=== PATIENT | female | born 1945 | race Caucasian/White ===

== ENCOUNTER 2017-12-24 11:49 | Emergency (ER) | payer BC, SELFPAY ==
[2017-12-24 12:00] VITALS: BP 137/66; PULSE 67; RESP 15; TEMP 36.3; O2SAT 99
--- NOTE | 2017-12-24 12:13 | ED.CHESTPAIN ---
HPI - Chest Pain <Gali Arnold PA-C - Last Filed: 12/24/17 21:40> General Chief Complaint: Chest Pain Stated Complaint: CHEST PAIN Time Seen by Provider: 12/24/17 12:11 Source: patient Mode of arrival: ambulatory Limitations: no limitations History of Present Illness HPI narrative: This 72-year-old female is sent by her PCP today due to chest discomfort. She states that she never had any chest pain in her life until this past summer. She states initially, she had this after taking her vitamins and supplements on an empty stomach and thought the pill got stuck in her chest sideways. She states that she has had a few episodes of chest discomfort similar to this on and off since summer that she thinks tends to may be her more when she is supine, and noted another episode after taking vitamins on an empty stomach once. She states that the last couple of days she has had sharper pain in her mid sternum that radiates up into her throat area. Pain does not seem to radiate to her jaw or shoulders or elsewhere. She states she has had a little bit more burping and belching in the past few days along with this. She states that she woke up with discomfort early this morning in her chest. She states she thinks that it maybe gets better with standing. She walked up pill this morning and states that she had no symptoms at all. She states for the last couple of days, pain will be sharp for a few minutes, then maybe she will have tiny twinges of pain later. Last night it came on while she was watching TV, then again early this morning while in bed as noted. She has not had any nausea or vomiting with these recent episodes. She has not had any abdominal pain, new pain or swelling in her arms or legs. She denies any difficulty swallowing. She states she has occasional slight dry cough without wheeze or dyspnea. She has not had any medication changes, but she notes that she has not eaten all day today. She states that symptoms did come on around the time she changed her diet to an even lower carb diet than usual last summer, but has gone back to her normal diet since. She states that other than some belching she is feeling better now. Related Data Home Medications Medication Instructions Recorded Confirmed Calcium 1 tab PO QPM 12/24/17 12/24/17 Vitamin B17 1 tab PO QPM 12/24/17 12/24/17 Vitamin C 1 tab PO QPM 12/24/17 12/24/17 Vitamin D3 1 tab PO QPM 12/24/17 12/24/17 glucosamine-chondroitin 1 tab PO QPM 12/24/17 12/24/17 magnesium 1 tab PO QPM 12/24/17 12/24/17 omega 1-epc-ldv-fish oil [[place]-3] 1 cap PO DAILY 12/24/17 12/24/17 selenium 1 cap PO DAILY 12/24/17 12/24/17 vitamin A 1 cap PO QPM 12/24/17 12/24/17 vitamin E 1 cap PO QPM 12/24/17 12/24/17 Allergies Allergy/AdvReac Type Severity Reaction Status Date / Time No Known Drug Allergies Allergy Verified 12/24/17 12:36 Review of Systems <Gali Arnold PA-C - Last Filed: 12/24/17 21:40> Review of Systems All systems reviewed & are unremarkable except as noted in HPI and below PFSH <Gali Arnold PA-C - Last Filed: 12/24/17 21:40> Comment: ETOH 1-2 per day, no street drugs Exam <Gali Arnold PA-C - Last Filed: 12/24/17 21:40> Narrative Exam Narrative: GENERAL APPEARANCE: Patient sitting comfortably, in no distress. HEENT: PERRL, EOMI, normal oropharynx NECK/THYROID: Neck supple, no JVD, no masses. LUNGS: Clear to auscultation bilaterally. CHEST: TTP over the xiphoid, no tenderness elsewhere HEART: Regular rate and rhythm without murmur, normal S1, S2, no S3 or S4. ABDOMEN: Soft, NT, ND, + BS x 4 quadrants EXTREMITIES: No cyanosis or edema. No calf tenderness NEUROLOGIC: Alert and oriented, normal speech, gait and coordination. DERMATOLOGIC: No exanthem Initial Vital Signs Initial Vital Signs: Vital Signs Temperature 97.3 F L 12/24/17 12:00 Pulse Rate 67 12/24/17 12:00 Respiratory Rate 15 12/24/17 12:00 Blood Pressure 137/66 12/24/17 12:00 Pulse Oximetry 99 12/24/17 12:00 <Panchito Christianson DO - Last Filed: 12/25/17 07:02> Initial Vital Signs Initial Vital Signs: Vital Signs Temperature 97.3 F L 12/24/17 12:00 Pulse Rate 67 12/24/17 12:00 Respiratory Rate 15 12/24/17 12:00 Blood Pressure 137/66 12/24/17 12:00 Pulse Oximetry 99 12/24/17 12:00 Scores <LUCAS Francois Last Filed: 12/24/17 21:40> HEART Score Heart Score history: Slightly Suspicious Heart Score EKG: Normal Heart Score Age: > or = 65 years old Heart Score risk factors: No known risk factors Heart Score troponin: < or = to normal limit Heart Score Total: 2 Course <LUCAS Francois Last Filed: 12/24/17 21:40> Orders Ordered: Discontinued Medications Al Hydrox/Mg Hydrox/Simethicone 20 ml/ Lidocaine HCl 15 ml 0 ml PO NOW ONE Stop: 12/24/17 12:45 Last Admin: 12/24/17 12:48 Dose: 35 ml Vital Signs - 8 hr 12/24/17 12:00 12/24/17 12:30 12/24/17 13:00 Temperature 97.3 F L Pulse Rate 67 67 65 Respiratory Rate 15 16 10 L Blood Pressure 137/66 Blood Pressure [Right Arm] 123/64 119/63 Pulse Oximetry 99 100 98 <Panchito Christianson DO - Last Filed: 12/25/17 07:02> Orders Ordered: Discontinued Medications Al Hydrox/Mg Hydrox/Simethicone 20 ml/ Lidocaine HCl 15 ml 0 ml PO NOW ONE Stop: 12/24/17 12:45 Last Admin: 12/24/17 12:48 Dose: 35 ml Vital Signs - 8 hr 12/24/17 12:00 12/24/17 12:30 12/24/17 13:00 Temperature 97.3 F L Pulse Rate 67 67 65 Respiratory Rate 15 16 10 L Blood Pressure 137/66 Blood Pressure [Right Arm] 123/64 119/63 Pulse Oximetry 99 100 98 MDM - Chest Pain <LUCAS Francois Last Filed: 12/24/17 21:40> Lab Data Attestation: I reviewed the patient's lab results. Result diagrams: 12/24/17 12:01 12/24/17 12:01 Lab Results 12/24/17 12/24/17 12/24/17 Range/Units 12:01 12:01 12:01 WBC 5.3 (4.5-11.0) X10^3/uL RBC 4.48 (4.0-5.2) X10^6/uL Hgb 14.5 (12.0-16.0) g/dL Hct 41.7 (36-46) % MCV 93.1 (80-100) fL MCH 32.4 (26-34) PG MCHC 34.8 (30-36) % RDW 13.9 (11.6-14.8) % Plt Count 291 (150-400) X10^3/uL Neut % (Auto) 58.7 (50-75) % Lymph % (Auto) 27.3 (25-40) % [place] % (Auto) 11.6 (3-14) % Eos % (Auto) 1.9 L (2-4) % Baso % (Auto) 0.5 (0-2) % Neut # (Auto) 3100 (9343-8537) /uL PT 11.0 (10.1-12.7) SECONDS INR 1.0 (0.9-1.3) APTT 25 L (26.4-36.2) SECONDS Sodium 142 (137-145) mmol/L Potassium 3.9 (3.4-5.1) mmol/L Chloride 106 (98-107) mmol/L Carbon Dioxide 28 (22-32) mmol/L BUN 11 (7-17) mg/dL Creatinine 0.50 L (0.52-1.04) mg/dL Estimated GFR > 60.0 (>60) mL/min BUN/Creatinine Ratio 22.0 (6-22) Glucose 85 (80-110) mg/dL Calcium 9.3 (8.4-10.2) mg/dL Total Bilirubin 0.5 (0.2-1.3) mg/dL AST 24 (14-36) IU/L ALT 29 (9-52) IU/L Alkaline Phosphatase 86 (38-126) U/L Total Creatine Kinase 105 (30-135) U/L CK-MB (CK-2) 1.83 (<2.37) ng/mL CK-MB (CK-2) Rel Index 1.7 (1.5-5.0) % Troponin I < 0.012 (0.01-0.034) ng/mL Total Protein 7.2 (6.3-8.2) g/dL Albumin 4.1 (3.5-5.0) g/dL Globulin 3.1 (1.7-4.1) g/dL Albumin/Globulin Ratio 1.3 (1.0-2.8) Lipase 78 (23-300) U/L Imaging Data Chest x-ray: Radiologist's impression: [place] [address] XRay Report Signed Patient: Lida Cox [facility]#: [id number] : 7Acct:[id number] Age/Sex: 72 / FDate of Service: 12/24/17 Loc: ED Accession Number: [id number] Procedure: XR chest 1V Ordering Provider: Panchito Christianson D.O. PROCEDURE: XR CHEST 1V INDICATIONS: chest pain TECHNIQUE: One view of the chest was acquired. COMPARISON: None. FINDINGS: Surgical changes and devices: None. Lungs and pleura: No pleural effusions or pneumothorax. Lungs are clear. Mediastinum: Mediastinal contours appear normal. Heart size is normal. Bones and chest wall: No suspicious bony lesions. Overlying soft tissues appear unremarkable. IMPRESSION: No acute cardiopulmonary disease. Dictated by: Selina Cooney M.D. on 12/24/2017 at 12:31 Approved by: Selina Cooney M.D. on 12/24/2017 at 12:46 ECG Data Attestation: I personally reviewed and interpreted this ECG as follows: (Normal sinus rhythm, rate 64, left axis deviation, no significant ST changes. No change from earlier today) Prior ECG tracings: available for review <Panchito Christianson DO - Last Filed: 12/25/17 07:02> Lab Data Lab Results 12/24/17 12/24/17 12/24/17 Range/Units 12:01 12:01 12:01 WBC 5.3 (4.5-11.0) X10^3/uL RBC 4.48 (4.0-5.2) X10^6/uL Hgb 14.5 (12.0-16.0) g/dL Hct 41.7 (36-46) % MCV 93.1 (80-100) fL MCH 32.4 (26-34) PG MCHC 34.8 (30-36) % RDW 13.9 (11.6-14.8) % Plt Count 291 (150-400) X10^3/uL Neut % (Auto) 58.7 (50-75) % Lymph % (Auto) 27.3 (25-40) % [place] % (Auto) 11.6 (3-14) % Eos % (Auto) 1.9 L (2-4) % Baso % (Auto) 0.5 (0-2) % Neut # (Auto) 3100 (2554-6908) /uL PT 11.0 (10.1-12.7) SECONDS INR 1.0 (0.9-1.3) APTT 25 L (26.4-36.2) SECONDS Sodium 142 (137-145) mmol/L Potassium 3.9 (3.4-5.1) mmol/L Chloride 106 (98-107) mmol/L Carbon Dioxide 28 (22-32) mmol/L BUN 11 (7-17) mg/dL Creatinine 0.50 L (0.52-1.04) mg/dL Estimated GFR > 60.0 (>60) mL/min BUN/Creatinine Ratio 22.0 (6-22) Glucose 85 (80-110) mg/dL Calcium 9.3 (8.4-10.2) mg/dL Total Bilirubin 0.5 (0.2-1.3) mg/dL AST 24 (14-36) IU/L ALT 29 (9-52) IU/L Alkaline Phosphatase 86 (38-126) U/L Total Creatine Kinase 105 (30-135) U/L CK-MB (CK-2) 1.83 (<2.37) ng/mL CK-MB (CK-2) Rel Index 1.7 (1.5-5.0) % Troponin I < 0.012 (0.01-0.034) ng/mL Total Protein 7.2 (6.3-8.2) g/dL Albumin 4.1 (3.5-5.0) g/dL Globulin 3.1 (1.7-4.1) g/dL Albumin/Globulin Ratio 1.3 (1.0-2.8) Lipase 78 (23-300) U/L Discharge Plan Departure Patient Disposition: Home Clinical Impression: Atypical chest pain Discharge Date/Time: 12/24/17 13:30 Interventions: ED Discharge Assessment Last Done: 12/24/17 13:29 Instructions: DI for Chest Pain Activity Restrictions/Additional Instructions: Your testing today does not appear suspicious for a heart problem based on what you describe and what we see. Since the medication we gave you today seemed to have helped, please start taking over the counter Pepcid (famotidine) 20mg, once daily. This is a mild huwp-qlo-neubkdd medicine to help with reflux and esophageal irritation. Also please keep some liquid antacid such as Maalox or Gaviscon on hand and take this if you get recurrent pain as this may give you more immediate relief. Reviewing your progress while taking these will likely be helpful to you and your PCP at your follow-up visit as well as keeping track of your diet as it sounds like there may be dietary triggers to your symptoms. Please follow-up with your PCP within the next week to discuss doing a cardiac stress test as well to get a clearer picture of what your heart is doing when under stress. You should return here immediately if you have any worsening symptoms, or new symptoms such as lightheadedness or shortness of breath in the interim. Prescriptions: No Action selenium 200 mcg Capsule 1 cap PO DAILY RF: 0 omega 7-vvz-nat-fish oil [[place]-3] 350 mg-235 mg- 90 mg-597 mg Capsule,Delayed Release(Dr/Ec) 1 cap PO DAILY RF: 0 Calcium 1 tab PO QPM RF: 0 Vitamin B17 1 tab PO QPM RF: 0 Vitamin C 1 tab PO QPM RF: 0 Vitamin D3 1 tab PO QPM RF: 0 glucosamine-chondroitin 1 tab PO QPM RF: 0 magnesium 1 tab PO QPM RF: 0 vitamin A 1 cap PO QPM RF: 0 vitamin E 1 cap PO QPM RF: 0 Referrals: Sanju Blevins MD [Primary Care Provider] - <Panchito Christianson DO - Last Filed: 12/25/17 07:02> [facility] ED Attending Shaynaature Attestation: I was available for consultation during this patient's emergency department encounter
[2017-12-24 12:21] LABS: PTT Partial Thromboplastin Tim 25 SECONDS (26.4-36.2)
--- NOTE | 2017-12-24 12:23 | ED_ITS ---
HPI - Chest Pain <Gali Arnold PA-C - Last Filed: 12/24/17 21:40> General Chief Complaint: Chest Pain Stated Complaint: CHEST PAIN Time Seen by Provider: 12/24/17 12:11 Source: patient Mode of arrival: ambulatory Limitations: no limitations History of Present Illness HPI narrative: This 72-year-old female is sent by her PCP today due to chest discomfort. She states that she never had any chest pain in her life until this past summer. She states initially, she had this after taking her vitamins and supplements on an empty stomach and thought the pill got stuck in her chest sideways. She states that she has had a few episodes of chest discomfort similar to this on and off since summer that she thinks tends to may be her more when she is supine, and noted another episode after taking vitamins on an empty stomach once. She states that the last couple of days she has had sharper pain in her mid sternum that radiates up into her throat area. Pain does not seem to radiate to her jaw or shoulders or elsewhere. She states she has had a little bit more burping and belching in the past few days along with this. She states that she woke up with discomfort early this morning in her chest. She states she thinks that it maybe gets better with standing. She walked up pill this morning and states that she had no symptoms at all. She states for the last couple of days, pain will be sharp for a few minutes, then maybe she will have tiny twinges of pain later. Last night it came on while she was watching TV, then again early this morning while in bed as noted. She has not had any nausea or vomiting with these recent episodes. She has not had any abdominal pain, new pain or swelling in her arms or legs. She denies any difficulty swallowing. She states she has occasional slight dry cough without wheeze or dyspnea. She has not had any medication changes, but she notes that she has not eaten all day today. She states that symptoms did come on around the time she changed her diet to an even lower carb diet than usual last summer , but has gone back to her normal diet since. She states that other than some belching she is feeling better now. Related Data Home Medications Medication Instructions Recorded Confirmed Calcium 1 tab PO QPM 12/24/17 12/24/17 Vitamin B17 1 tab PO QPM 12/24/17 12/24/17 Vitamin C 1 tab PO QPM 12/24/17 12/24/17 Vitamin D3 1 tab PO QPM 12/24/17 12/24/17 glucosamine-chondroitin 1 tab PO QPM 12/24/17 12/24/17 magnesium 1 tab PO QPM 12/24/17 12/24/17 omega 6-gme-twx-fish oil [[place]-3] 1 cap PO DAILY 12/24/17 12/24/17 selenium 1 cap PO DAILY 12/24/17 12/24/17 vitamin A 1 cap PO QPM 12/24/17 12/24/17 vitamin E 1 cap PO QPM 12/24/17 12/24/17 Allergies Allergy/AdvReac Type Severity Reaction Status Date / Time No Known Drug Allergies Allergy Verified 12/24/17 12:36 Review of Systems <Gali Arnold PA-C - Last Filed: 12/24/17 21:40> Review of Systems All systems reviewed & are unremarkable except as noted in HPI and below PFSH <Gali Arnold PA-C - Last Filed: 12/24/17 21:40> Comment: ETOH 1-2 per day, no street drugs Exam <Gali Arnold PA-C - Last Filed: 12/24/17 21:40> Narrative Exam Narrative: GENERAL APPEARANCE: Patient sitting comfortably, in no distress. HEENT: PERRL, EOMI, normal oropharynx NECK/THYROID: Neck supple, no JVD, no masses. LUNGS: Clear to auscultation bilaterally. CHEST: TTP over the xiphoid, no tenderness elsewhere HEART: Regular rate and rhythm without murmur, normal S1, S2, no S3 or S4. ABDOMEN: Soft, NT, ND, + BS x 4 quadrants EXTREMITIES: No cyanosis or edema. No calf tenderness NEUROLOGIC: Alert and oriented, normal speech, gait and coordination. DERMATOLOGIC: No exanthem Initial Vital Signs Initial Vital Signs: Vital Signs Temperature 97.3 F L 12/24/17 12:00 Pulse Rate 67 12/24/17 12:00 Respiratory Rate 15 12/24/17 12:00 Blood Pressure 137/66 12/24/17 12:00 Pulse Oximetry 99 12/24/17 12:00 <Panchito Christianson DO - Last Filed: 12/25/17 07:02> Initial Vital Signs Initial Vital Signs: Vital Signs Temperature 97.3 F L 12/24/17 12:00 Pulse Rate 67 12/24/17 12:00 Respiratory Rate 15 12/24/17 12:00 Blood Pressure 137/66 12/24/17 12:00 Pulse Oximetry 99 12/24/17 12:00 Scores <LUCAS Francois Last Filed: 12/24/17 21:40> HEART Score Heart Score history: Slightly Suspicious Heart Score EKG: Normal Heart Score Age: > or = 65 years old Heart Score risk factors: No known risk factors Heart Score troponin: < or = to normal limit Heart Score Total: 2 Course <LUACS Francois Last Filed: 12/24/17 21:40> Orders Ordered: Discontinued Medications Al Hydrox/Mg Hydrox/Simethicone 20 ml/ Lidocaine HCl 15 ml 0 ml PO NOW ONE Stop: 12/24/17 12:45 Last Admin: 12/24/17 12:48 Dose: 35 ml Vital Signs - 8 hr 12/24/17 12:00 12/24/17 12:30 12/24/17 13:00 Temperature 97.3 F L Pulse Rate 67 67 65 Respiratory Rate 15 16 10 L Blood Pressure 137/66 Blood Pressure [Right Arm] 123/64 119/63 Pulse Oximetry 99 100 98 <Panchito Christianson DO - Last Filed: 12/25/17 07:02> Orders Ordered: Discontinued Medications Al Hydrox/Mg Hydrox/Simethicone 20 ml/ Lidocaine HCl 15 ml 0 ml PO NOW ONE Stop: 12/24/17 12:45 Last Admin: 12/24/17 12:48 Dose: 35 ml Vital Signs - 8 hr 12/24/17 12:00 12/24/17 12:30 12/24/17 13:00 Temperature 97.3 F L Pulse Rate 67 67 65 Respiratory Rate 15 16 10 L Blood Pressure 137/66 Blood Pressure [Right Arm] 123/64 119/63 Pulse Oximetry 99 100 98 MDM - Chest Pain <LUCAS Francois Last Filed: 12/24/17 21:40> Lab Data Attestation: I reviewed the patient's lab results. Result diagrams: 12/24/17 12:01 12/24/17 12:01 Lab Results 12/24/17 12/24/17 12/24/17 Range/Units 12:01 12:01 12:01 WBC 5.3 (4.5-11.0) X10^3/uL RBC 4.48 (4.0-5.2) X10^6/uL Hgb 14.5 (12.0-16.0) g/dL Hct 41.7 (36-46) % MCV 93.1 (80-100) fL MCH 32.4 (26-34) PG MCHC 34.8 (30-36) % RDW 13.9 (11.6-14.8) % Plt Count 291 (150-400) X10^3/uL Neut % (Auto) 58.7 (50-75) % Lymph % (Auto) 27.3 (25-40) % [place] % (Auto) 11.6 (3-14) % Eos % (Auto) 1.9 L (2-4) % Baso % (Auto) 0.5 (0-2) % Neut # (Auto) 3100 (9173-1776) /uL PT 11.0 (10.1-12.7) SECONDS INR 1.0 (0.9-1.3) APTT 25 L (26.4-36.2) SECONDS Sodium 142 (137-145) mmol/L Potassium 3.9 (3.4-5.1) mmol/L Chloride 106 (98-107) mmol/L Carbon Dioxide 28 (22-32) mmol/L BUN 11 (7-17) mg/dL Creatinine 0.50 L (0.52-1.04) mg/dL Estimated GFR > 60.0 (>60) mL/min BUN/Creatinine Ratio 22.0 (6-22) Glucose 85 (80-110) mg/dL Calcium 9.3 (8.4-10.2) mg/dL Total Bilirubin 0.5 (0.2-1.3) mg/dL AST 24 (14-36) IU/L ALT 29 (9-52) IU/L Alkaline Phosphatase 86 (38-126) U/L Total Creatine Kinase 105 (30-135) U/L CK-MB (CK-2) 1.83 (<2.37) ng/mL CK-MB (CK-2) Rel Index 1.7 (1.5-5.0) % Troponin I < 0.012 (0.01-0.034) ng/mL Total Protein 7.2 (6.3-8.2) g/dL Albumin 4.1 (3.5-5.0) g/dL Globulin 3.1 (1.7-4.1) g/dL Albumin/Globulin Ratio 1.3 (1.0-2.8) Lipase 78 (23-300) U/L Imaging Data Chest x-ray: Radiologist's impression: [place] [address] XRay Report Signed Patient: Lida Cox [facility]#: [id number] : 7Acct:[id number] Age/Sex: 72 / FDate of Service: 12/24/17 Loc: ED Accession Number: [id number] Procedure: XR chest 1V Ordering Provider: Panchito Christianson D.O. PROCEDURE: XR CHEST 1V INDICATIONS: chest pain TECHNIQUE: One view of the chest was acquired. COMPARISON: None. FINDINGS: Surgical changes and devices: None. Lungs and pleura: No pleural effusions or pneumothorax. Lungs are clear. Mediastinum: Mediastinal contours appear normal. Heart size is normal. Bones and chest wall: No suspicious bony lesions. Overlying soft tissues appear unremarkable. IMPRESSION: No acute cardiopulmonary disease. Dictated by: Selina Cooney M.D. on 12/24/2017 at 12:31 Approved by: Selina Cooney M.D. on 12/24/2017 at 12:46 ECG Data Attestation: I personally reviewed and interpreted this ECG as follows: (Normal sinus rhythm, rate 64, left axis deviation, no significant ST changes. No change from earlier today) Prior ECG tracings: available for review <Panchito Christianson DO - Last Filed: 12/25/17 07:02> Lab Data Lab Results 12/24/17 12/24/17 12/24/17 Range/Units 12:01 12:01 12:01 WBC 5.3 (4.5-11.0) X10^3/uL RBC 4.48 (4.0-5.2) X10^6/uL Hgb 14.5 (12.0-16.0) g/dL Hct 41.7 (36-46) % MCV 93.1 (80-100) fL MCH 32.4 (26-34) PG MCHC 34.8 (30-36) % RDW 13.9 (11.6-14.8) % Plt Count 291 (150-400) X10^3/uL Neut % (Auto) 58.7 (50-75) % Lymph % (Auto) 27.3 (25-40) % [place] % (Auto) 11.6 (3-14) % Eos % (Auto) 1.9 L (2-4) % Baso % (Auto) 0.5 (0-2) % Neut # (Auto) 3100 (5519-1872) /uL PT 11.0 (10.1-12.7) SECONDS INR 1.0 (0.9-1.3) APTT 25 L (26.4-36.2) SECONDS Sodium 142 (137-145) mmol/L Potassium 3.9 (3.4-5.1) mmol/L Chloride 106 (98-107) mmol/L Carbon Dioxide 28 (22-32) mmol/L BUN 11 (7-17) mg/dL Creatinine 0.50 L (0.52-1.04) mg/dL Estimated GFR > 60.0 (>60) mL/min BUN/Creatinine Ratio 22.0 (6-22) Glucose 85 (80-110) mg/dL Calcium 9.3 (8.4-10.2) mg/dL Total Bilirubin 0.5 (0.2-1.3) mg/dL AST 24 (14-36) IU/L ALT 29 (9-52) IU/L Alkaline Phosphatase 86 (38-126) U/L Total Creatine Kinase 105 (30-135) U/L CK-MB (CK-2) 1.83 (<2.37) ng/mL CK-MB (CK-2) Rel Index 1.7 (1.5-5.0) % Troponin I < 0.012 (0.01-0.034) ng/mL Total Protein 7.2 (6.3-8.2) g/dL Albumin 4.1 (3.5-5.0) g/dL Globulin 3.1 (1.7-4.1) g/dL Albumin/Globulin Ratio 1.3 (1.0-2.8) Lipase 78 (23-300) U/L Discharge Plan Departure Patient Disposition: Home Clinical Impression: Atypical chest pain Discharge Date/Time: 12/24/17 13:30 Interventions: ED Discharge Assessment Last Done: 12/24/17 13:29 Instructions: DI for Chest Pain Activity Restrictions/Additional Instructions: Your testing today does not appear suspicious for a heart problem based on what you describe and what we see. Since the medication we gave you today seemed to have helped, please start taking over the counter Pepcid (famotidine) 20mg, once daily. This is a mild gvze-zgf-acrtfvy medicine to help with reflux and esophageal irritation. Also please keep some liquid antacid such as Maalox or Gaviscon on hand and take this if you get recurrent pain as this may give you more immediate relief. Reviewing your progress while taking these will likely be helpful to you and your PCP at your follow-up visit as well as keeping track of your diet as it sounds like there may be dietary triggers to your symptoms. Please follow-up with your PCP within the next week to discuss doing a cardiac stress test as well to get a clearer picture of what your heart is doing when under stress. You should return here immediately if you have any worsening symptoms, or new symptoms such as lightheadedness or shortness of breath in the interim. Prescriptions: No Action selenium 200 mcg Capsule 1 cap PO DAILY RF: 0 omega 7-omh-qao-fish oil [[place]-3] 350 mg-235 mg- 90 mg-597 mg Capsule, Delayed Release(Dr/Ec) 1 cap PO DAILY RF: 0 Calcium 1 tab PO QPM RF: 0 Vitamin B17 1 tab PO QPM RF: 0 Vitamin C 1 tab PO QPM RF: 0 Vitamin D3 1 tab PO QPM RF: 0 glucosamine-chondroitin 1 tab PO QPM RF: 0 magnesium 1 tab PO QPM RF: 0 vitamin A 1 cap PO QPM RF: 0 vitamin E 1 cap PO QPM RF: 0 Referrals: Sanju Blevins MD [Primary Care Provider] - <Panchito Christianson DO - Last Filed: 12/25/17 07:02> [facility] ED Attending Shaynaature Attestation: I was available for consultation during this patient's emergency department encounter
[2017-12-24 12:26] LABS: Add Manual Diff / Slide Review NO; Basophils Percent Auto 0.5 % (0-2); Eosinophils Percent Auto 1.9 % (2-4); Hematocrit 41.7 % (36-46); Hemoglobin 14.5 g/dL (12.0-16.0); Lymphocytes Percent Auto 27.3 % (25-40); Mean Corpuscular HGB Conc 34.8 % (30-36); Mean Corpuscular Hemoglobin 32.4 PG (26-34); Mean Corpuscular Volume 93.1 fL (80-100); Monocytes Percent Auto 11.6 % (3-14); Neutrophils Absolute Auto 3100 /uL (3000-5900); Neutrophils Percent Auto 58.7 % (50-75); Platelet Count 291 X10^3/uL (150-400); Red Blood Cell Count 4.48 X10^6/uL (4.0-5.2); Red Cell Distribution Width 13.9 % (11.6-14.8); White Blood Cell Count 5.3 X10^3/uL (4.5-11.0)
[2017-12-24 12:30] VITALS: BP 123/64; PULSE 67; RESP 16; O2SAT 100
[2017-12-24] MEDS: MAG HYDROX/ALUMINUM/SIMETH SUS 20 ML, LIDOCAINE VISCOUS 2% 15 ML PO (12:48)
[2017-12-24 13:00] VITALS: BP 119/63; PULSE 65; RESP 10; O2SAT 98
[2017-12-24 13:00] LABS: Alanine Aminotransferase 29 IU/L (9-52); Albumin 4.1 g/dL (3.5-5.0); Albumin Globulin Ratio 1.3 (1.0-2.8); Alkaline Phosphatase 86 U/L (38-126); Aspartate Aminotransferase 24 IU/L (14-36); Bilirubin Total 0.5 mg/dL (0.2-1.3); Blood Urea Nitrogen 11 mg/dL (7-17); Calcium 9.3 mg/dL (8.4-10.2); Carbon Dioxide 28 mmol/L (22-32); Chloride 106 mmol/L (98-107); Creatine Kinase 105 U/L (30-135); Estimated Glomerular Filt Rate > 60.0 mL/min (>60); Globulin 3.1 g/dL (1.7-4.1); Glucose 85 mg/dL (80-110); HEMOLYSIS < 15 (0-50); Lipase 78 U/L (23-300); Potassium 3.9 mmol/L (3.4-5.1); Sodium 142 mmol/L (137-145); Total Protein 7.2 g/dL (6.3-8.2)
[2017-12-24 13:02] LABS: CKMB % Relative Index 1.7 % (1.5-5.0); Creatine Kinase MB 1.83 ng/mL (<2.37)
[2017-12-24 13:03] LABS: Troponin I < 0.012 ng/mL (0.01-0.034)
== END 2017-12-24 13:30 | disposition home or self-care (01) ==
PROVIDERS: Emergency Medicine; Emergency Provider Internal Medicine; PCP Internal Medicine
DX: R07.89 Other chest pain (principal)
CPT/HCPCS: 36415; 36591; 71045; 80053; 82550; 82553; 83690; 84484; 85025; 85610; 85730; 93005; 99283; 99285

== ENCOUNTER → 2019-04-04 09:54 | Outpatient (CLI) | payer MEDICARE, BC, SELFPAY ==
--- NOTE | 2019-04-04 | DI.MG.S_ITS ---
BILATERAL DIGITAL SCREENING MAMMOGRAM 3D/2D WITH CAD: 04/04/2019 CLINICAL: Routine screening. Personal history of left breast cancer. Comparison is made to exams dated: 09/19/2007 mammogram, 07/06/2011 mammogram, and 12/18/2012 mammogram - [facility]. There are scattered fibroglandular elements in both breasts. Current study was also evaluated with a Computer Aided Detection (CAD) system. No significant masses, calcifications, or other findings are seen in either breast. There has been no significant interval change. IMPRESSION: NEGATIVE There is no mammographic evidence of malignancy. A 1 year screening mammogram is recommended. This exam was interpreted at Station ID: [id number]. NOTE: For mammograms, a report in lay terms will be sent to the patient. Approximately 15% of breast malignancies will not be visualized mammographically. In the management of a palpable breast mass, a negative mammogram must not discourage biopsy of a clinically suspicious lesion. Electronically Signed By: Latisha burt/alexa:04/06/2019 10:21:27 letter sent: Normal Exam ACR BI-RADS Category 1: Negative [id number]
== END ==
PROVIDERS: PCP Internal Medicine; Visit Provider Internal Medicine
DX: Z12.31 Encounter for screening mammogram for malignant neoplasm of breast (principal); Z85.3 Personal history of malignant neoplasm of breast
CPT/HCPCS: 77063; 77067

== ENCOUNTER → 2021-04-22 09:59 | Outpatient (CLI) | payer MEDICARE, BC, SELFPAY ==
--- NOTE | 2021-04-22 10:36 | DI.MG.S_ITS ---
Procedure: MM screening mammo BI BILATERAL DIGITAL SCREENING MAMMOGRAM 3D/2D WITH CAD: 04/22/2021 CLINICAL: Routine screening. Personal history of left breast cancer. Comparison is made to exams dated: 04/04/2019 mammogram - [facility], 12/18/2012 mammogram, and 07/06/2011 mammogram - [facility]. There are scattered fibroglandular elements in both breasts. Current study was also evaluated with a Computer Aided Detection (CAD) system. No significant masses, calcifications, or other findings are seen in either breast. There has been no significant interval change. IMPRESSION: NEGATIVE There is no mammographic evidence of malignancy. A 1 year screening mammogram is recommended. This exam was interpreted at Station ID: [id number]. NOTE: For mammograms, a report in lay terms will be sent to the patient. Approximately 15% of breast malignancies will not be visualized mammographically. In the management of a palpable breast mass, a negative mammogram must not discourage biopsy of a clinically suspicious lesion. Electronically Signed By: Alberto oscar/alexa:04/24/2021 09:43:29 letter sent: Normal Exam ACR BI-RADS Category 1: Negative 3341F
== END ==
PROVIDERS: PCP Internal Medicine; Referring Provider Internal Medicine; Visit Provider Internal Medicine
DX: Z12.31 Encounter for screening mammogram for malignant neoplasm of breast (principal); Z85.3 Personal history of malignant neoplasm of breast
CPT/HCPCS: 77063; 77067

== ENCOUNTER → 2021-06-30 12:17 | Outpatient (CLI) | payer MEDICARE, BC, SELFPAY ==
--- NOTE | 2021-06-30 | DI.MRI.S_ITS ---
PROCEDURE: MR PELVIS WO/W CON INDICATIONS: PELVIC PAIN TECHNIQUE: Coronal HASTE, sagittal breath-hold T2 FSE; axial T1 FSE with and without fat saturation through the pelvis. Optional long- and short-axis uterine nonbreath-hold T2 FSE through the uterus. Sagittal or axial dynamic VIBE during administration of contrast. Post-contrast axial or coronal VIBE/2-D FLASH with fat saturation from the iliac crests to the symphysis. 10 cc ProHance IV contrast. COMPARISON: None. FINDINGS: Image quality: Excellent. Uterus: Uterus measures 6.3 x 4.6 x 4.5 cm and is prominent size for age. There is a larger posterior exophytic fibroid measuring 3 x 3 x 3 cm. There is an anterior intramural fibroid measuring 2.9 x 2.7 x 2.6 cm. Additional smaller intramural fibroids. Junctional zone is normal in thickness at 12 mm or less. Endometrium is not well seen. The endometrium does not appear to be thickened. Adnexa: No suspicious lesions seen. Urinary system: Bladder is decompressed limiting evaluation. Distal ureters are non distended. Urethra appears normal in morphology. Nodes and vessels: No pelvic or inguinal adenopathy by size criteria. Iliac vessels are normal in size. Bowel and peritoneum: No pathologic free pelvic fluid. Inferior colon and small bowel loops are normal in caliber. Soft tissues: No inguinal hernias. No findings of pelvic floor incompetence in the absence of provocation. Bones: Marrow demonstrates normal overall signal. IMPRESSION: 1. Endometrium is not well seen but does not appear to be thickened. 2. Prominent uterus with multiple fibroids. Large posterior exophytic fibroid measuring 3 cm. Anterior intramural fibroid measuring 2.9 cm. 3. Ovaries are not identified. No free fluid. Dictated by: Gustabo Wooten M.D. on 06/30/2021 at 15:39 Approved by: Gustabo Wooten M.D. on 06/30/2021 at 15:48
== END ==
PROVIDERS: PCP Internal Medicine; Referring Provider Internal Medicine; Visit Provider Internal Medicine
DX: R10.2 Pelvic and perineal pain (principal); R10.32 Left lower quadrant pain; D25.1 Intramural leiomyoma of uterus; D25.9 Leiomyoma of uterus, unspecified
CPT/HCPCS: 72197

== ENCOUNTER → 2023-03-29 11:48 | Outpatient (CLI) | payer MEDICARE, BC, SELFPAY ==
--- NOTE | 2023-03-29 | DI.RAD.S_ITS ---
Bone Density Report Name: BRYAN VENEGAS Age: 78 Sex: Female Ethnicity: White Date of : 1945 Indication: postmenopausal; screening for osteoporosis; Referring Provider: WILLIAM HO Study: Bone densitometry was performed. Exam Date: March 29, 2023 Accession number: [id number] Bone Density: Region BMD T-score Z-score Classification AP Spine(L1-L4) 0.772 -2.5 0.0 Osteoporosis Femoral Neck (Left) 0.660 -1.7 0.4 Osteopenia Total Hip (Left) 0.831 -0.9 0.9 Normal Femoral Neck (Right) 0.695 -1.4 0.7 Osteopenia Total Hip (Right) 0.838 -0.9 1.0 Normal Total Hip Mean 0.834 -0.9 1.0 Normal World Health Organization criteria for BMD impression classify patients as: Normal (T-score at or above -1.0), Osteopenia (T-score between -1.0 and -2.5), or Osteoporosis (T-score at or below -2.5). 10-year Fracture Risk: FRAX not reported because: Some T-score for Spine Total or Hip Total or Femoral Neck at or below -2.5 Impression: The patient has osteoporosis, based on the Total Spine T-score. Discussion: INCREASED RISK OF FRACTURE. BONE DENSITY IS UNDESIRABLY LOW AT ONE OR MORE SKELETAL SITES, CONSISTENT WITH POSTMENOPAUSAL OSTEOPOROSIS. This patient's lowest T-score meets the World Health Organization's (WHO) criteria for osteoporosis at one or more sites (T-score -2.5 or below). In untreated patients, the risk of osteoporotic fracture increases approximately two-fold for each 1.0 SD decrease in T-score. Low bone density is not the only risk factor for fracture; also consider factors such as patient's age, frailty or poor health, risk of falling, risk of injury, previous osteoporotic fracture, family history of osteoporosis, cigarette smoking, low body weight, etc. Not everyone with low bone mineral density has osteoporosis; osteomalacia and other metabolic bone disorders should also be considered. Patients who have osteoporosis should be evaluated for specific diseases and conditions (secondary causes) that may cause or contribute to bone loss. The [place] [employer]ocrinologists (AACE) and National Osteoporosis Foundation (NOF) recommend pharmacologic intervention for all postmenopausal women whose T-score is in this range. The patient should follow a healthful lifestyle (good nutrition with adequate calcium and vitamin D, and appropriate weight-bearing exercise). Follow-Up: Consider a repeat BMD and Vertebral Fracture Assessment (VFA) exam in 2 years or sooner if medically necessary, to reassess this patient's status. Reported by: ERI GRAY M.D. on 03/29/2023 12:29:00 PM.
== END ==
PROVIDERS: PCP Internal Medicine; Referring Provider Internal Medicine; Visit Provider Internal Medicine
DX: N95.8 Other specified menopausal and perimenopausal disorders (principal); M81.0 Age-related osteoporosis without current pathological fracture
CPT/HCPCS: 77080

== ENCOUNTER → 2023-06-10 12:50 | Outpatient (CLI) | payer MEDICARE, SELFPAY ==
--- NOTE | 2023-06-10 | DI.MG.S_ITS ---
BILATERAL DIGITAL SCREENING MAMMOGRAM 3D/2D WITH CAD: 06/10/2023 CLINICAL: Routine screening. Personal history of left breast cancer. Comparison is made to exams dated: 04/22/2021 mammogram, 04/04/2019 mammogram - [facility], and 12/18/2012 mammogram - [facility]. There are scattered areas of fibroglandular density in both breasts (category b / 25%-50% glandular tissue). Current study was also evaluated with a Computer Aided Detection (CAD) system. No significant masses, calcifications, or other findings are seen in either breast. There has been no significant interval change. IMPRESSION: NEGATIVE There is no mammographic evidence of malignancy. A 1 year screening mammogram is recommended. This exam was interpreted at Station ID: [id number]. NOTE: For mammograms, a report in lay terms will be sent to the patient. Approximately 15% of breast malignancies will not be visualized mammographically. In the management of a palpable breast mass, a negative mammogram must not discourage biopsy of a clinically suspicious lesion. Electronically Signed By: Latisha burt/alexa:06/10/2023 17:19:40 letter sent: Normal Exam ACR BI-RADS Category 1: Negative 3341F
== END ==
PROVIDERS: PCP Internal Medicine; Referring Provider Internal Medicine; Visit Provider Internal Medicine
DX: Z12.31 Encounter for screening mammogram for malignant neoplasm of breast (principal); Z85.3 Personal history of malignant neoplasm of breast; R92.323 Mammographic fibroglandular density, bilateral breasts
CPT/HCPCS: 77063; 77067

== ENCOUNTER → 2024-10-29 15:02 | Outpatient (CLI) | payer MEDICARE, SELFPAY ==
--- NOTE | 2024-10-29 15:02 | DI.MG.S_ITS ---
MM screening mammo BI: 10/29/2024. BI-RADS: 2 CLINICAL: 79-year old female for bilateral screening mammogram. Tyrer-Cuzick lifetime risk of 3.0%. PRIOR EXAMS 06/10/2023, 04/22/2021, 04/04/2019. MAMMOGRAPHY TECHNIQUE: 2D and 3D (tomosynthesis) digital mammographic views obtained, with additional images as needed for full coverage. Current study was also evaluated with a Computer Aided Detection (CAD) system. DENSITY C. The breasts are heterogeneously dense, which may obscure small masses. MAMMOGRAPHY FINDINGS Right: No suspicious mass, asymmetry, microcalcification, or other abnormality seen. Left: Benign-appearing post-surgical changes noted on the left. There are no suspicious masses, calcifications, or other findings in the breast. IMPRESSION: Right * No evidence of malignancy. Left * No evidence of malignancy with benign findings. RECOMMENDATIONS Bilateral * Annual screening mammography. OVERALL ASSESSMENT CATEGORY BI-RADS-2: Benign. The [employer] recommends annual screening mammography beginning at age 40 for women with average risk of breast cancer. ELECTRONICALLY SIGNED: Sharifa Connor M.D. on 11/03/2024 at 02:11:25 AM PT Interpreting Station ID: [id number]
== END ==
LOC: MAMMO 15:02
PROVIDERS: PCP Family Medicine; Referring Provider Family Medicine; Visit Provider Family Medicine
DX: Z12.31 Encounter for screening mammogram for malignant neoplasm of breast (principal); R92.333 Mammographic heterogeneous density, bilateral breasts
CPT/HCPCS: 77063; 77067